=== PATIENT | female | born 1940 | race Caucasian/White ===

== ENCOUNTER 2020-06-28 13:05 | Inpatient (IN) | payer MEDICARE, BC ==
[~2020-06-28] VITALS: Ht 165.1 cm; Wt 49.0 kg
[2020-06-28 14:36] VITALS: BP 140/73
[2020-06-28] MEDS ORDERED: MAGNESIUM/ALUMINUM HYDROXIDE/SIMETHICONE 30ML UDC PO PRN (15:45)
[2020-06-28] MEDS ORDERED: ACETAMINOPHEN 325MG TABLET PO PRN ×2 (15:45)
[2020-06-28] MEDS ORDERED: DIPHENHYDRAMINE 50MG/ML VIAL IV PRN (15:45)
[2020-06-28] MEDS ORDERED: CLONIDINE 0.1MG TABLET PO PRN (15:45)
[2020-06-28] MEDS ORDERED: ZOLPIDEM TARTRATE 5MG TABLET PO PRN (15:45)
[2020-06-28] MEDS ORDERED: ONDANSETRON HCL 4MG/2ML INJ IV PRN (15:45)
[2020-06-28 16:00] VITALS: BP 140/73
[2020-06-28] MEDS ORDERED: VANCOMYCIN 1 G PREMIX 200 ML IV NR (17:30)
[2020-06-28 19:40] LABS: BASOPHILS % 0.8 % (0.0-2.0); EOSINOPHILS % 1.9 % (0.0-5.0); HEMATOCRIT. 38.2 % (36.0-48.0); HEMOGLOBIN. 12.7 g/dL (12.0-16.0); MEAN CORPUSCULAR HEMOGLOBIN 26.7 pg (28.0-32.0); MEAN CORPUSCULAR VOLUME 80.5 fL (81.0-99.0); MEAN PLATELET VOLUME 8.1 fl (7.4-10.4); MONOCYTES % 8.4 % (2.0-8.0); NEUTROPHILS % 63.9 % (40.0-76.0); PLATELET 242 x1000/uL (130-400); RED BLOOD CELL COUNT 4.75 mill/uL (4.2-5.4); RED CELL DISTRIBUTION WIDTH 15.1 % (11.6-14.6)
[2020-06-28 19:44] LABS: CHLORIDE 109 mEq/L (98-107)
[2020-06-28 19:53] LABS: T4 FREE 1.04 ng/dL (0.76-1.46)
[2020-06-28 20:00] VITALS: BP 154/67
[2020-06-28 20:19] LABS: VITAMIN B12 SERUM 737 pg/mL (211-911)
[2020-06-28] MEDS: SODIUM CHLORIDE 0.9% INJ 3ML FLUSH IVF SCH (21:19)
[2020-06-29] VITALS: BP 147/72
[2020-06-29 04:00] VITALS: BP 115/76
[2020-06-29] MEDS: SODIUM CHLORIDE 0.9% INJ 3ML FLUSH IVF SCH ×3 (05:31→22:57)
[2020-06-29 07:17] LABS: CHLORIDE 109 mEq/L (98-107)
[2020-06-29 08:00] VITALS: BP 161/64
[2020-06-29] MEDS: VANCOMYCIN 750 MG PREMIX 150 ML IV SCH (11:10)
[2020-06-29 12:00] VITALS: BP 167/74
[2020-06-29 16:00] VITALS: BP 147/67
[2020-06-29] MEDS ORDERED: TETANUS, DIPHTHERIA, PERTUSSIS VAC/PF 0.5ML (>7YR OLD) IM ONE (18:00)
[2020-06-29 20:00] VITALS: BP 156/72
[2020-06-30] VITALS: BP 138/66
[2020-06-30 04:00] VITALS: BP 154/65
[2020-06-30] MEDS: VANCOMYCIN 750 MG PREMIX 150 ML IV SCH ×2 (05:49→22:33)
[2020-06-30] MEDS: SODIUM CHLORIDE 0.9% INJ 3ML FLUSH IVF SCH ×3 (06:02→22:23)
[2020-06-30 08:00] VITALS: BP 141/59
[2020-06-30 12:00] VITALS: BP 128/51
[2020-06-30 16:00] VITALS: BP 137/72
[2020-06-30 20:00] VITALS: BP 145/84
[2020-07-01] VITALS: BP 136/67
[2020-07-01 04:00] VITALS: BP 132/72
[2020-07-01] MEDS: SODIUM CHLORIDE 0.9% INJ 3ML FLUSH IVF SCH ×3 (06:10→21:19)
[2020-07-01 07:50] LABS: BASOPHILS % 0.8 % (0.0-2.0); EOSINOPHILS % 1.5 % (0.0-5.0); HEMATOCRIT. 38.4 % (36.0-48.0); HEMOGLOBIN. 12.9 g/dL (12.0-16.0); LYMPHOCYTES % 23.4 % (20.0-50.0); MEAN CORPUSCULAR HEMOGLOBIN 26.7 pg (28.0-32.0); MEAN CORPUSCULAR VOLUME 79.6 fL (81.0-99.0); MEAN PLATELET VOLUME 7.9 fl (7.4-10.4); MONOCYTES % 9.8 % (2.0-8.0); NEUTROPHILS % 64.5 % (40.0-76.0); PLATELET 228 x1000/uL (130-400); RED BLOOD CELL COUNT 4.83 mill/uL (4.2-5.4); RED CELL DISTRIBUTION WIDTH 15.6 % (11.6-14.6)
[2020-07-01 08:00] VITALS: BP 145/57
[2020-07-01 12:00] VITALS: BP 155/58
[2020-07-01] MEDS ORDERED: MORPHINE SULFATE 2 MG/ML CPJ (NOT FOR IM USE) IV NR (12:00)
[2020-07-01] MEDS: VANCOMYCIN 750 MG PREMIX 150 ML IV SCH ×2 (12:14→23:35)
[2020-07-01] MEDS ORDERED: LIDOCAINE HCL 1% 20ML VIAL (Pyxis) INJ INFIL NR (13:00)
[2020-07-01 16:00] VITALS: BP 125/71
[2020-07-01 20:00] VITALS: BP 113/71
[2020-07-02] VITALS: BP 154/73
[2020-07-02 04:00] VITALS: BP 165/73
[2020-07-02] MEDS: SODIUM CHLORIDE 0.9% INJ 3ML FLUSH IVF SCH ×2 (06:00→14:00)
[2020-07-02 07:47] LABS: CHLORIDE 109 mEq/L (98-107)
[2020-07-02 08:00] VITALS: BP 140/65
[2020-07-02 12:00] VITALS: BP 136/68
[2020-07-02] MEDS ORDERED: VANCOMYCIN 1 G PREMIX 200 ML IV SCH (12:00)
[2020-07-02 15:19] VITALS: BP 136/68
[2020-07-02 16:00] VITALS: BP 161/60
== END 2020-07-02 18:43 | disposition home or self-care (01) | DRG 854 ==
LOC: 6EST 13:05
PROVIDERS: ADMIT Internal Medicine; ATTEND Internal Medicine
PROC: 0K9T0ZZ Drainage of Left Lower Leg Muscle, Open Approach (ICD-10-PCS; principal; 2020-07-01)
DX: A41.9 Sepsis, unspecified organism (principal); L03.116 Cellulitis of left lower limb; L02.416 Cutaneous abscess of left lower limb; Z86.011 Personal history of benign neoplasm of the brain; Z87.828 Personal history of other (healed) physical injury and trauma; Z79.899 Other long term (current) drug therapy; S80.10XA Contusion of unspecified lower leg, initial encounter
CPT/HCPCS: 36415; 73718; 80048; 80053; 80202; 82607; 84439; 84443; 85025; 85651; 87070; 87075; 90715; 93970; J1200; J2270; J3370; J3490